=== PATIENT | female | born 2000 | race Asian ===

== ENCOUNTER 2025-06-14 00:30 | Emergency (ER) | payer SELFPAY ==
[~2025-06-14] VITALS: Ht 162.6 cm; Wt 56.7 kg
[2025-06-14 01:27] VITALS: O2SAT 98
[2025-06-14] MEDS: ALBUTEROL FS 2.5 MG/3 ML VIAL.NEB NEB ONE (01:27)
[2025-06-14] MEDS: IPRATROPIUM NEB FS 0.5 MG/2.5 ML AMPUL.NEB NEB ONE (01:27)
[2025-06-14] MEDS ORDERED: ALBUTEROL FS 2.5 MG/3 ML VIAL.NEB ONE (01:33)
[2025-06-14] MEDS ORDERED: IPRATROPIUM NEB FS 0.5 MG/2.5 ML AMPUL.NEB ONE (01:33)
[2025-06-14 01:37] VITALS: O2SAT 100
[2025-06-14 01:47] VITALS: O2SAT 100
[2025-06-14] MEDS ORDERED: ALBU2.5V38 NEB (02:28)
[2025-06-14] MEDS ORDERED: ALBU8.5H8 INH (02:28)
[2025-06-14] MEDS ORDERED: PRED50TA PO (02:28)
[2025-06-14] MEDS ORDERED: IPRA0.2S49 NEB (02:28)
[2025-06-14 02:39] VITALS: BP 115/70; TEMP 98; O2SAT 100
== END 2025-06-14 02:40 | disposition home or self-care (01) ==
LOC: ER 00:36
DX: J45.901 Unspecified asthma with (acute) exacerbation (principal)
CPT/HCPCS: 99285; 94640; J7512